=== PATIENT | male | born 1950 | race Caucasian/White ===

== ENCOUNTER → 2017-09-23 | Outpatient (CLI) | payer MEDICARE ==
[~2017-09-23] MED LIST: IOPAMIDOL-370 75 ML VIAL IV ONE; ISOVUE-370 50ML VIAL IV ONE
== END ==
LOC: RAH 07:29
PROVIDERS: ATTEND Internal Medicine Cardiovascular Disease
DX: I66.9 Occlusion and stenosis of unspecified cerebral artery (principal); I70.0 Atherosclerosis of aorta; J90 Pleural effusion, not elsewhere classified; M47.892 Other spondylosis, cervical region
CPT/HCPCS: 70496; 70498; Q9967

== ENCOUNTER → 2017-09-26 | Outpatient (CLI) | payer MEDICARE | END | disposition home or self-care (01) | LOC: SHCH 14:10 | PROVIDERS: ATTEND Internal Medicine Cardiovascular Disease | DX: I73.9 Peripheral vascular disease, unspecified (principal) | CPT/HCPCS: 93970 ==

== ENCOUNTER → 2017-09-27 | Outpatient (CLI) | payer MEDICARE ==
[~2017-09-27] MED LIST changes: +IOPAMIDOL-370 100 ML VIAL IV ONE; -IOPAMIDOL-370 75 ML VIAL IV ONE
== END | disposition home or self-care (01) ==
LOC: RAH 08:34
PROVIDERS: ATTEND Internal Medicine Cardiovascular Disease
DX: I73.9 Peripheral vascular disease, unspecified (principal); K80.20 Calculus of gallbladder without cholecystitis without obstruction; I70.90 Unspecified atherosclerosis; R18.8 Other ascites
CPT/HCPCS: 75635; Q9967 ×2

== ENCOUNTER → 2017-10-28 | Outpatient (CLI) | payer MEDICARE ==
[2017-10-28 09:02] LABS: BASOPHILS % (AUTO) 0.4 % (0.0-5.0); EOSINOPHILS % (AUTO) 2.4 % (0.0-8.0); HEMATOCRIT 37.7 % (42-54); LYMPHOCYTES % (AUTO) 14.5 % (21.0-51.0); MEAN CORPUSCULAR HEMOGLOBIN 33.2 pg (27.0-33.0); MEAN CORPUSCULAR HGB CONC 34.6 g/dL (32.0-36.0); MONOCYTES % (AUTO) 8.1 % (3.0-13.0); NEUTROPHILS % (AUTO) 74.6 % (40.0-77.0); NUCLEATED RED BLOOD CELLS 0.1 % (0.0-0.19); PLATELET COUNT (AUTO) 137 K/uL (130-400); RED BLOOD CELL COUNT(AUTO) 3.93 MIL/uL (4.50-6.20); RED CELL DISTRIBUTION WIDTH 14.3 % (11.0-15.5)
[2017-10-28 09:19] LABS: INR 1.2 (0.85-1.15); PROTHROMBIN TIME 12.6 SEC (9.6-11.6)
[2017-10-28 09:24] LABS: ALBUMIN 2.2 g/dL (3.5-5.0); BILIRUBIN,DIRECT 0.4 mg/dL (0.0-0.3); BILIRUBIN,TOTAL 0.9 mg/dL (0.2-1.0); CREATININE 1.1 mg/dL (0.5-1.5); POTASSIUM 3.6 mmol/L (3.5-5.1); TOTAL PROTEIN, SERUM 6.6 g/dL (6.0-8.3)
[2017-10-28 09:34] LABS: % IRON SATURATION 28.2 % (30-44)
[2017-10-31 11:16] LABS: HEPATITIS A ANTIBODY IGM Negative (Negative); HEPATITIS Bs ANTIGEN SCREEN P Negative (Negative)
[2017-10-31 11:17] LABS: ALPHA-1-ANTITRYPSIN 128 mg/dL (90-200); HEPATITIS B CORE IGM Negative (Negative)
== END | disposition home or self-care (01) ==
LOC: LAB 08:19
PROVIDERS: ATTEND Internal Medicine Gastroenterology
DX: R18.8 Other ascites (principal); A00-B99 Certain infectious and parasitic diseases; B18.0 Chronic viral hepatitis B with delta-agent; C22.0 Liver cell carcinoma; C22.9 Malignant neoplasm of liver, not specified as primary or secondary; C38.2 Malignant neoplasm of posterior mediastinum
CPT/HCPCS: 36415; 80053; 80074; 80076; 82103; 82104; 82105; 82728; 83540; 83550; 84165; 85025; 85610; 86038; 86215; 86235; 86255

== ENCOUNTER → 2017-10-29 | Outpatient (CLI) | payer MEDICARE ==
[~2017-10-29] MED LIST changes: +ALBUMIN (HUMAN) 25% 200 ML IV SCH; -IOPAMIDOL-370 100 ML VIAL IV ONE; -ISOVUE-370 50ML VIAL IV ONE
[2017-10-29 11:23] LABS: ALBUMIN,BODY FLUID 0.7 g/dL
[2017-10-29 12:06] LABS: APPEARANCE BODY FLUID CLEAR (CLEAR); COLOR,BODY FLUID YELLOW (LT YELLOW); SPECIMENTYPE,BODY FLUID ASCITES
[2017-10-29 12:07] LABS: BODY FLUID RBC 139 /cu. mm.; BODY FLUID WBC 228 /cu. mm.
[2017-10-29 12:10] LABS: BF LYMPHOCYTE 30 %; BF MESOTHELIAL 38 %; BF MONOCYTE 11 %
[2017-10-29 12:11] LABS: TOTAL VOLUME,BODY FLUID 10500 mL
== END | disposition home or self-care (01) ==
LOC: RAH 07:15
PROVIDERS: ATTEND Internal Medicine Gastroenterology
DX: R18.8 Other ascites (principal)
CPT/HCPCS: 49083; 82042; 87071; 87076; 87205; 88108; 88305; 89051; P9046